=== PATIENT | female | born 1950 | race African-American/Black ===

== ENCOUNTER 2019-05-05 19:57 | Inpatient (IN) | payer MEDICARE ==
[~2019-05-05] VITALS: Ht 160 cm; Wt 101.2 kg
[2019-05-05 20:41] LABS: EOSINOPHILS % 1.4 % (0.0-5.0); HEMATOCRIT. 36.5 % (36.0-48.0); HEMOGLOBIN. 11.8 g/dL (12.0-16.0); MEAN CORPUSCULAR HEMOGLOBIN 25.9 pg (28.0-32.0); MEAN CORPUSCULAR VOLUME 79.8 fL (81.0-99.0); MEAN PLATELET VOLUME 8.7 fl (7.4-10.4); MONOCYTES % 8.4 % (2.0-8.0); NEUTROPHILS % 61.2 % (40.0-76.0); PLATELET 266 x1000/uL (130-400); RED BLOOD CELL COUNT 4.57 mill/uL (4.2-5.4); RED CELL DISTRIBUTION WIDTH 14.5 % (11.6-14.6)
[2019-05-05] MEDS ORDERED: NITROGLYCERIN 0.4MG TABLET SL SL PRN (20:45)
[2019-05-05] MEDS ORDERED: ASPIRIN 325MG TABLET PO ONE (20:45)
[2019-05-05 20:48] LABS: CHLORIDE 106 mEq/L (98-107)
[2019-05-05 20:49] LABS: PROTHROMBIN TIME 10.5 sec (9.6-11.0)
[2019-05-05] MEDS ORDERED: SODIUM CHLORIDE 0.9% 1,000 ML IV ONE (20:58)
[2019-05-05 22:55] VITALS: BP 174/83
[2019-05-06] MEDS ORDERED: ZOLPIDEM TARTRATE 5MG TABLET PO PRN
[2019-05-06] MEDS ORDERED: DEXTROSE 50% WATER 50ML SYRINGE IV PRN
[2019-05-06] MEDS ORDERED: ONDANSETRON HCL 4MG/2ML INJ IV PRN
[2019-05-06 00:24] VITALS: BP 179/83
[2019-05-06 01:01] LABS: BASOPHILS % 0.7 % (0.0-2.0); EOSINOPHILS % 1.8 % (0.0-5.0); HEMATOCRIT. 34.8 % (36.0-48.0); HEMOGLOBIN. 11.3 g/dL (12.0-16.0); MEAN CORPUSCULAR HEMOGLOBIN 25.8 pg (28.0-32.0); MEAN CORPUSCULAR VOLUME 79.6 fL (81.0-99.0); MEAN PLATELET VOLUME 8.8 fl (7.4-10.4); MONOCYTES % 9.7 % (2.0-8.0); NEUTROPHILS % 57.8 % (40.0-76.0); PLATELET 244 x1000/uL (130-400); RED BLOOD CELL COUNT 4.37 mill/uL (4.2-5.4); RED CELL DISTRIBUTION WIDTH 14.2 % (11.6-14.6)
[2019-05-06 01:06] LABS: CHLORIDE 108 mEq/L (98-107)
[2019-05-06] MEDS ORDERED: INSU100I28 SQ (01:11)
[2019-05-06] MEDS ORDERED: HYDR12.529 MT (01:11)
[2019-05-06] MEDS ORDERED: CARV10CP MT (01:11)
[2019-05-06] MEDS ORDERED: B12/1TAB MT (01:11)
[2019-05-06] MEDS: INSULIN GLARGINE UD 100 UNITS/ML SYR SUBCUT SCH ×3 (01:29→21:26)
[2019-05-06 04:00] VITALS: BP 175/84
[2019-05-06] MEDS: NITROGLYCERIN OINT 1GM/INCH UDPKT TD SCH ×3 (05:55→21:01)
[2019-05-06] MEDS: BLOOD SUGAR DIAGNOSTIC STRIP TEST SCH ×4 (06:15→21:26)
[2019-05-06] MEDS: INSULIN LISPRO 100 UNITS/ML SUBCUT SCH ×4 (06:31→21:00)
[2019-05-06 07:40] LABS: LDL CHOLESTEROL 192 mg/dL (5-100)
[2019-05-06 07:43] LABS: HDL CHOLESTEROL 47 mg/dL (40-59)
[2019-05-06 08:00] VITALS: BP 169/80
[2019-05-06] MEDS: AMLODIPINE 5MG TABLET PO SCH ×2 (09:51→20:55)
[2019-05-06] MEDS: ASPIRIN 325MG EC TABLET PO SCH (09:51)
[2019-05-06] MEDS: METOPROLOL TARTRATE 50MG TABLET PO SCH ×2 (09:52→20:54)
[2019-05-06] MEDS: ENOXAPARIN 40MG/0.4ML SYR SUBCUT SCH (09:54)
[2019-05-06] MEDS: MORPHINE SULFATE 2 MG/ML CPJ (NOT FOR IM USE) IV PRN (10:55)
[2019-05-06 11:25] LABS: CLARITY URINE CLEAR (CLEAR); COLOR URINE YELLOW (YELLOW); KETONES URINE NEGATIVE (NEGATIVE); LEUKOCYTE ESTERASE URINE NEGATIVE (NEGATIVE); NITRITE URINE NEGATIVE (NEGATIVE); OCCULT BLOOD URINE NEGATIVE (NEGATIVE); PROTEIN URINE NEGATIVE (NEGATIVE); SPECIFIC GRAVITY URINE 1.015 (1.005-1.030); UROBILINOGEN URINE 0.2 E.U./dL (0.2-1.0)
[2019-05-06] MEDS ORDERED: REGADENOSON 0.4 MG/5 ML IV SCH (13:15)
[2019-05-06 13:56] LABS: *AMPHETAMINES SCREEN URINE NEGATIVE (NEGATIVE); *BARBITURATES SCREEN URINE NEGATIVE (NEGATIVE); *BENZODIAZEPINES SCREEN URINE NEGATIVE (NEGATIVE); *COCAINE SCREEN URINE NEGATIVE (NEGATIVE); METHADONE URINE SCREEN NEGATIVE (NEGATIVE); OPIATES URINE SCREEN NEGATIVE (NEGATIVE)
[2019-05-06 13:57] LABS: CANNABINOID URINE SCREEN NEGATIVE (NEGATIVE); PHENCYCLIDINE URINE SCREEN NEGATIVE (NEGATIVE)
[2019-05-06] MEDS ORDERED: REGADENOSON 0.4 MG/5 ML IV ONE (14:00)
[2019-05-06 16:00] VITALS: BP 155/73
[2019-05-06 20:00] VITALS: BP 137/61
[2019-05-06] MEDS: ATORVASTATIN CALCIUM 40MG TABLET PO SCH (20:55)
[2019-05-06] MEDS ORDERED: HYDRALAZINE HCL 50MG TABLET PO SCH (21:00)
[2019-05-06] MEDS: HYDRALAZINE HCL 100MG TABLET PO SCH (21:01)
[2019-05-07] MEDS ORDERED: ACETAMINOPHEN 325MG TABLET PO PRN
[2019-05-07 00:06] VITALS: BP 111/72
[2019-05-07] MEDS: NITROGLYCERIN 0.4MG TABLET SL SL PRN ×4 (00:09→09:38)
[2019-05-07 04:15] VITALS: BP 170/85
[2019-05-07] MEDS: HYDROCODONE/ACETAMINOPHEN 5/325MG TABLET PO PRN ×3 (04:26→21:59)
[2019-05-07] MEDS: NITROGLYCERIN OINT 1GM/INCH UDPKT TD SCH ×3 (05:36→22:08)
[2019-05-07] MEDS: HYDRALAZINE HCL 100MG TABLET PO SCH ×3 (05:36→22:00)
[2019-05-07] MEDS: INSULIN LISPRO 100 UNITS/ML SUBCUT SCH ×4 (06:34→21:12)
[2019-05-07] MEDS: BLOOD SUGAR DIAGNOSTIC STRIP TEST SCH ×4 (06:34→21:09)
[2019-05-07 06:35] LABS: BASOPHILS % 0.3 % (0.0-2.0); EOSINOPHILS % 2.5 % (0.0-5.0); HEMATOCRIT. 34.6 % (36.0-48.0); HEMOGLOBIN. 11.3 g/dL (12.0-16.0); LYMPHOCYTES % 29.5 % (20.0-50.0); MEAN CORPUSCULAR HEMOGLOBIN 25.9 pg (28.0-32.0); MEAN CORPUSCULAR VOLUME 79.5 fL (81.0-99.0); MEAN PLATELET VOLUME 9.1 fl (7.4-10.4); MONOCYTES % 7.8 % (2.0-8.0); NEUTROPHILS % 59.9 % (40.0-76.0); PLATELET 241 x1000/uL (130-400); RED BLOOD CELL COUNT 4.35 mill/uL (4.2-5.4); RED CELL DISTRIBUTION WIDTH 14.2 % (11.6-14.6)
[2019-05-07 08:00] VITALS: BP 127/66
[2019-05-07] MEDS: METOPROLOL TARTRATE 50MG TABLET PO SCH ×2 (08:35→21:00)
[2019-05-07] MEDS: AMLODIPINE 5MG TABLET PO SCH ×2 (08:36→21:00)
[2019-05-07] MEDS: ENOXAPARIN 40MG/0.4ML SYR SUBCUT SCH (08:36)
[2019-05-07] MEDS: ASPIRIN 325MG EC TABLET PO SCH (09:52)
[2019-05-07] MEDS: MORPHINE SULFATE 2 MG/ML CPJ (NOT FOR IM USE) IV PRN (09:53)
[2019-05-07] MEDS: INSULIN GLARGINE UD 100 UNITS/ML SYR SUBCUT SCH ×2 (10:48→21:13)
[2019-05-07 12:00] VITALS: BP 137/71
[2019-05-07] MEDS ORDERED: POTASSIUM CHLORIDE INJ 40 MEQ in DEXT 5% WATER 250 ML IV NR (13:00)
[2019-05-07] MEDS ORDERED: HYDROMORPHONE HCL/PF 2MG/ML CPJ IM PRN (13:30)
[2019-05-07 16:00] VITALS: BP 183/78
[2019-05-07] MEDS: CLONIDINE 0.1MG TABLET PO SCH ×2 (17:08→23:00)
[2019-05-07] MEDS ORDERED: CLON0.1T MT (17:19)
[2019-05-07 20:00] VITALS: BP 105/53
[2019-05-07] MEDS: ATORVASTATIN CALCIUM 40MG TABLET PO SCH (21:13)
[2019-05-07] MEDS: HYDROMORPHONE HCL/PF 2MG/ML CPJ IV PRN (23:32)
[2019-05-08] VITALS: BP 130/69
[2019-05-08 04:00] VITALS: BP 128/69
[2019-05-08] MEDS: HYDROMORPHONE HCL/PF 2MG/ML CPJ IV PRN ×3 (05:41→21:51)
[2019-05-08] MEDS: CLONIDINE 0.1MG TABLET PO SCH (05:56)
[2019-05-08] MEDS: BLOOD SUGAR DIAGNOSTIC STRIP TEST SCH ×4 (05:57→21:00)
[2019-05-08] MEDS: HYDRALAZINE HCL 100MG TABLET PO SCH ×2 (05:57→14:00)
[2019-05-08] MEDS: NITROGLYCERIN OINT 1GM/INCH UDPKT TD SCH ×3 (05:57→21:51)
[2019-05-08] MEDS ORDERED: DEXT 5%/0.45% NACL 500ML 500 ML IV ONE (06:00)
[2019-05-08 07:20] LABS: BASOPHILS % 0.5 % (0.0-2.0); EOSINOPHILS % 0.4 % (0.0-5.0); HEMATOCRIT. 34.2 % (36.0-48.0); HEMOGLOBIN. 11.1 g/dL (12.0-16.0); LYMPHOCYTES % 19.3 % (20.0-50.0); MEAN CORPUSCULAR HEMOGLOBIN 26.1 pg (28.0-32.0); MEAN CORPUSCULAR VOLUME 80.2 fL (81.0-99.0); MEAN PLATELET VOLUME 9.1 fl (7.4-10.4); MONOCYTES % 6.5 % (2.0-8.0); NEUTROPHILS % 73.3 % (40.0-76.0); PLATELET 253 x1000/uL (130-400); RED BLOOD CELL COUNT 4.27 mill/uL (4.2-5.4)
[2019-05-08 08:00] VITALS: BP 134/63
[2019-05-08] MEDS: INSULIN LISPRO 100 UNITS/ML SUBCUT SCH ×7 (08:30→22:02)
[2019-05-08] MEDS ORDERED: SODIUM CHLORIDE 0.9% 1,000 ML IV SCH (08:30)
[2019-05-08] MEDS: METOPROLOL TARTRATE 50MG TABLET PO SCH ×2 (09:00→21:00)
[2019-05-08] MEDS: ASPIRIN 325MG EC TABLET PO SCH (09:00)
[2019-05-08] MEDS: AMLODIPINE 5MG TABLET PO SCH (09:00)
[2019-05-08] MEDS: INSULIN GLARGINE UD 100 UNITS/ML SYR SUBCUT SCH ×2 (09:59→22:13)
[2019-05-08 12:00] VITALS: BP 99/66
[2019-05-08 16:00] VITALS: BP 133/56
[2019-05-08] MEDS ORDERED: CLONIDINE 0.1MG TABLET PO SCH ×2 (18:00→21:00)
[2019-05-08 20:00] VITALS: BP 129/57
[2019-05-08] MEDS ORDERED: AMLODIPINE 2.5MG TABLET PO SCH (21:00)
[2019-05-08] MEDS: ATORVASTATIN CALCIUM 40MG TABLET PO SCH (21:52)
[2019-05-08] MEDS: HYDRALAZINE HCL 50MG TABLET PO SCH (22:00)
[2019-05-09] VITALS: BP 116/50
[2019-05-09 04:00] VITALS: BP 110/41
[2019-05-09] MEDS: HYDROMORPHONE HCL/PF 2MG/ML CPJ IV PRN (04:00)
[2019-05-09] MEDS: HYDRALAZINE HCL 50MG TABLET PO SCH (05:35)
[2019-05-09] MEDS: NITROGLYCERIN OINT 1GM/INCH UDPKT TD SCH ×2 (05:35→13:50)
[2019-05-09] MEDS: INSULIN LISPRO 100 UNITS/ML SUBCUT SCH ×4 (06:02→12:35)
[2019-05-09] MEDS: BLOOD SUGAR DIAGNOSTIC STRIP TEST SCH ×2 (06:02→12:34)
[2019-05-09 07:09] LABS: BASOPHILS % 0.5 % (0.0-2.0); EOSINOPHILS % 1.1 % (0.0-5.0); HEMATOCRIT. 35.8 % (36.0-48.0); HEMOGLOBIN. 11.6 g/dL (12.0-16.0); LYMPHOCYTES % 30.5 % (20.0-50.0); MEAN CORPUSCULAR VOLUME 80.4 fL (81.0-99.0); NEUTROPHILS % 59.9 % (40.0-76.0); PLATELET 247 x1000/uL (130-400); RED BLOOD CELL COUNT 4.45 mill/uL (4.2-5.4); RED CELL DISTRIBUTION WIDTH 14.3 % (11.6-14.6)
[2019-05-09 07:27] LABS: PHOSPHORUS 4.6 mg/dL (2.5-4.9)
[2019-05-09 08:00] VITALS: BP 162/80
[2019-05-09] MEDS ORDERED: CARVEDILOL 3.125 MG TABLET PO SCH (09:00)
[2019-05-09] MEDS: ASPIRIN 325MG EC TABLET PO SCH (09:22)
[2019-05-09] MEDS: INSULIN GLARGINE UD 100 UNITS/ML SYR SUBCUT SCH (09:23)
[2019-05-09 12:00] VITALS: BP 142/70
[2019-05-09] MEDS ORDERED: AMLODIPINE 2.5MG TABLET PO SCH (12:45)
[2019-05-09 14:27] VITALS: BP 142/70
== END 2019-05-09 15:20 | disposition home or self-care (01) | DRG 682 ==
LOC: ER 19:57 → 8WST 21:07 → EDBEDREQTM 21:14 → EDBEDREQ 21:14 → ENRESERV 21:27
PROVIDERS: ADMIT Internal Medicine; ATTEND Internal Medicine
DX: I12.9 Hypertensive chronic kidney disease with stage 1 through stage 4 chronic kidney disease, or unspecified chronic kidney disease (principal); N17.0 Acute kidney failure with tubular necrosis; E85.9 Amyloidosis, unspecified; E87.1 Hypo-osmolality and hyponatremia; I25.10 Atherosclerotic heart disease of native coronary artery without angina pectoris; R07.89 Other chest pain; D25.9 Leiomyoma of uterus, unspecified; E11.22 Type 2 diabetes mellitus with diabetic chronic kidney disease; G56.00 Carpal tunnel syndrome, unspecified upper limb; E11.40 Type 2 diabetes mellitus with diabetic neuropathy, unspecified; J30.9 Allergic rhinitis, unspecified; M71.50 Other bursitis, not elsewhere classified, unspecified site; E66.9 Obesity, unspecified; E78.00 Pure hypercholesterolemia, unspecified; E87.6 Hypokalemia; F41.8 Other specified anxiety disorders; G47.33 Obstructive sleep apnea (adult) (pediatric); G89.29 Other chronic pain; H40.9 Unspecified glaucoma; I83.90 Asymptomatic varicose veins of unspecified lower extremity; E78.5 Hyperlipidemia, unspecified; K59.00 Constipation, unspecified; K64.9 Unspecified hemorrhoids; M19.90 Unspecified osteoarthritis, unspecified site; N18.3 Chronic kidney disease, stage 3 (moderate); N89.8 Other specified noninflammatory disorders of vagina; Z79.4 Long term (current) use of insulin; Z79.82 Long term (current) use of aspirin; Z83.3 Family history of diabetes mellitus; Z83.71 Family history of colonic polyps; Z91.018 Allergy to other foods; Z68.39 Body mass index [BMI] 39.0-39.9, adult; I25.2 Old myocardial infarction; Z71.3 Dietary counseling and surveillance
CPT/HCPCS: 36415; 71045; 76770; 78452; 80048; 80061; 80305; 81003; 82962; 83036; 83735; 83880; 84100; 84443; 84484; 93005; 93017; 93306; 99285; A9500; J1170; J1650; J1815; J2270; J2405; J2785; J3480; J7030; J7060

== ENCOUNTER 2021-05-11 13:08 | Inpatient (IN) | payer MEDICARE ==
[~2021-05-11] VITALS: Ht 160 cm; Wt 111.1 kg
[~2021-05-11 13:08] MED LIST: B12/1TAB MT; CARV10CP MT; CLON0.1T MT; INSU100I28 SQ
[2021-05-11] MEDS ORDERED: SODIUM CHLORIDE 0.9% 1,000 ML IV ONE (20:45)
[2021-05-11] MEDS ORDERED: ONDANSETRON HCL 4MG/2ML INJ IV ONE (20:45)
[2021-05-11] MEDS ORDERED: ACETAMINOPHEN 325MG TABLET PO ONE (20:45)
[2021-05-11 21:09] LABS: BASOPHILS % 0.9 % (0.0-2.0); EOSINOPHILS % 1.8 % (0.0-5.0); HEMATOCRIT. 32.4 % (36.0-48.0); HEMOGLOBIN. 10.5 g/dL (12.0-16.0); LYMPHOCYTES % 23.5 % (20.0-50.0); MEAN CORPUSCULAR HEMOGLOBIN 26.2 pg (28.0-32.0); MEAN CORPUSCULAR VOLUME 81.2 fL (81.0-99.0); MEAN PLATELET VOLUME 8.5 fl (7.4-10.4); MONOCYTES % 10.1 % (2.0-8.0); NEUTROPHILS % 63.7 % (40.0-76.0); PLATELET 274 x1000/uL (130-400); RED BLOOD CELL COUNT 3.98 mill/uL (4.2-5.4); RED CELL DISTRIBUTION WIDTH 15.2 % (11.6-14.6)
[2021-05-11 21:16] LABS: CHLORIDE 113 mEq/L (98-107)
[2021-05-11 21:27] LABS: B-HCG QUANTITATIVE < 1 mIU/mL (<3)
[2021-05-11] MEDS ORDERED: FUROSEMIDE 40MG/4ML VIAL IVP ONE (22:45)
[2021-05-12] MEDS ORDERED: FURO20TA4 MT (02:52)
[2021-05-12] MEDS ORDERED: MINO10TA PO (02:52)
[2021-05-12] MEDS ORDERED: AZIL80TA MT (02:52)
[2021-05-12] MEDS ORDERED: LABE100T5 MT (02:52)
[2021-05-12] MEDS ORDERED: ALBU6.7H9 INH (02:57)
[2021-05-12] MEDS ORDERED: DEXTROSE 50% WATER 50ML SYRINGE IV PRN (03:00)
[2021-05-12 03:52] VITALS: BP 182/80
[2021-05-12 04:00] VITALS: BP 132/49
[2021-05-12] MEDS: CLONIDINE 0.1MG TABLET PO PRN ×3 (04:16→12:19)
[2021-05-12] MEDS ORDERED: FUROSEMIDE 40MG/4ML VIAL IVP SCH (06:00)
[2021-05-12] MEDS: INSULIN LISPRO 100 UNITS/ML SUBCUT SCH ×4 (06:11→21:04)
[2021-05-12] MEDS: BLOOD SUGAR DIAGNOSTIC STRIP TEST SCH ×4 (06:18→21:00)
[2021-05-12 06:28] LABS: BASOPHILS % 0.6 % (0.0-2.0); EOSINOPHILS % 1.4 % (0.0-5.0); HEMATOCRIT. 31.7 % (36.0-48.0); HEMOGLOBIN. 10.1 g/dL (12.0-16.0); LYMPHOCYTES % 16.3 % (20.0-50.0); MEAN CORPUSCULAR HEMOGLOBIN 25.9 pg (28.0-32.0); MEAN CORPUSCULAR VOLUME 81.6 fL (81.0-99.0); MEAN PLATELET VOLUME 8.4 fl (7.4-10.4); NEUTROPHILS % 73.7 % (40.0-76.0); PLATELET 288 x1000/uL (130-400); RED BLOOD CELL COUNT 3.88 mill/uL (4.2-5.4); RED CELL DISTRIBUTION WIDTH 15.3 % (11.6-14.6)
[2021-05-12 08:00] VITALS: BP 174/82
[2021-05-12] MEDS: ASPIRIN 81MG EC TABLET PO SCH (08:31)
[2021-05-12] MEDS ORDERED: CARVEDILOL 3.125 MG TABLET PO SCH (09:00)
[2021-05-12] MEDS ORDERED: LISINOPRIL 5MG TABLET PO SCH (09:00)
[2021-05-12] MEDS ORDERED: FUROSEMIDE 40MG TABLET PO SCH (09:00)
[2021-05-12 12:00] VITALS: BP 190/65
[2021-05-12] MEDS ORDERED: HYDRALAZINE HCL 100MG TABLET PO NR (14:00)
[2021-05-12] MEDS ORDERED: NALOXONE HCL 0.4MG/ML VIAL IV PRN (14:00)
[2021-05-12] MEDS: MINOXIDIL 10MG TABLET PO SCH (15:00)
[2021-05-12 16:00] VITALS: BP 162/81
[2021-05-12] MEDS: ISOSORBIDE MONONITRATE 30MG TABLET SR 24HR PO SCH (17:28)
[2021-05-12] MEDS: FUROSEMIDE 40MG/4ML VIAL IVP SCH (17:29)
[2021-05-12 20:00] VITALS: BP 115/57
[2021-05-12] MEDS: HYDRALAZINE HCL 100MG TABLET PO SCH (21:18)
[2021-05-12] MEDS: ATORVASTATIN CALCIUM 40MG TABLET PO SCH (21:18)
[2021-05-12] MEDS: LABETALOL HCL 100MG TABLET PO SCH (21:19)
[2021-05-13] VITALS: BP 102/43
[2021-05-13 04:00] VITALS: BP 136/41
[2021-05-13] MEDS: INSULIN LISPRO 100 UNITS/ML SUBCUT SCH ×4 (06:25→21:45)
[2021-05-13] MEDS: BLOOD SUGAR DIAGNOSTIC STRIP TEST SCH ×4 (06:25→21:37)
[2021-05-13] MEDS: FUROSEMIDE 40MG/4ML VIAL IVP SCH ×2 (06:25→17:07)
[2021-05-13 08:00] VITALS: BP 140/55
[2021-05-13] MEDS: LABETALOL HCL 100MG TABLET PO SCH ×2 (08:43→21:39)
[2021-05-13] MEDS: ASPIRIN 81MG EC TABLET PO SCH (08:43)
[2021-05-13] MEDS: ISOSORBIDE MONONITRATE 30MG TABLET SR 24HR PO SCH (08:44)
[2021-05-13] MEDS: MINOXIDIL 10MG TABLET PO SCH (08:44)
[2021-05-13] MEDS: HYDRALAZINE HCL 100MG TABLET PO SCH ×2 (08:44→21:38)
[2021-05-13] MEDS ORDERED: LISINOPRIL 40MG TABLET PO SCH (09:00)
[2021-05-13] MEDS: HYDROCODONE/ACETAMINOPHEN 5/325MG TABLET PO PRN ×2 (10:16→16:15)
[2021-05-13 12:00] VITALS: BP 111/48
[2021-05-13 16:00] VITALS: BP 122/54
[2021-05-13 20:00] VITALS: BP 113/53
[2021-05-13] MEDS: ATORVASTATIN CALCIUM 40MG TABLET PO SCH (21:38)
[2021-05-13] MEDS: INSULIN GLARGINE UD 100 UNITS/ML SYR SUBCUT SCH (21:53)
[2021-05-14] VITALS: BP 101/43
[2021-05-14 04:00] VITALS: BP 94/32
[2021-05-14] MEDS: FUROSEMIDE 40MG/4ML VIAL IVP SCH (06:26)
[2021-05-14] MEDS: BLOOD SUGAR DIAGNOSTIC STRIP TEST SCH ×4 (06:26→21:00)
[2021-05-14] MEDS: INSULIN LISPRO 100 UNITS/ML SUBCUT SCH ×4 (06:35→21:26)
[2021-05-14 08:00] VITALS: BP 108/49
[2021-05-14] MEDS: LABETALOL HCL 100MG TABLET PO SCH ×2 (09:00→21:22)
[2021-05-14] MEDS: HYDRALAZINE HCL 100MG TABLET PO SCH (09:00)
[2021-05-14] MEDS: ISOSORBIDE MONONITRATE 30MG TABLET SR 24HR PO SCH (09:00)
[2021-05-14] MEDS: MINOXIDIL 10MG TABLET PO SCH (09:00)
[2021-05-14] MEDS: ASPIRIN 81MG EC TABLET PO SCH (09:28)
[2021-05-14] MEDS: INSULIN GLARGINE UD 100 UNITS/ML SYR SUBCUT SCH ×2 (09:37→21:27)
[2021-05-14 12:00] VITALS: BP 121/48
[2021-05-14 16:00] VITALS: BP 122/71
[2021-05-14 16:02] LABS: BG BASE EXCESS -1.5 mmol/L (-2.0-2.0); BG CARBOXYHEMOGLOBIN 0.3 % (0.5-1.5); BG DEOXYHEMOGLOBIN 2.4 % (0.0-5.0); BG FRACTION INSPIRED OXYGEN 28; BG HCO3 ACT 23.6 mmol/L (22.0-26.0); BG METHEMOGLOBIN 0.3 % (0.0-1.5); BG OXYGEN SATURATION 97.6 % (92.0-98.5); BG PCO2 41.6 mmHg (35.0-45.0); BG PH 7.372 (7.350-7.450); BG PO2 106.5 mmHg (75.0-100.0); BG SAMPLE SITE RIGHT RADIAL; BG TOTAL HEMOGLOBIN 9.6 g/dL (12.0-18.0); BG VENT MODE NASAL CANNULA
[2021-05-14 19:57] LABS: CLARITY URINE CLOUDY (CLEAR); COLOR URINE YELLOW (YELLOW); KETONES URINE TRACE (NEGATIVE); LEUKOCYTE ESTERASE URINE 1+ (NEGATIVE); NITRITE URINE NEGATIVE (NEGATIVE); OCCULT BLOOD URINE 2+ (NEGATIVE); PROTEIN URINE 1+ (NEGATIVE); SPECIFIC GRAVITY URINE 1.015 (1.005-1.030); UROBILINOGEN URINE 0.2 E.U./dL (0.2-1.0)
[2021-05-14 20:00] VITALS: BP 119/70
[2021-05-14] MEDS: ATORVASTATIN CALCIUM 40MG TABLET PO SCH (21:22)
[2021-05-15] VITALS (7 sets, daily range): BP systolic 137–162; BP diastolic 50–73
[2021-05-15 05:46] LABS: BASOPHILS % 0.5 % (0.0-2.0); HEMATOCRIT. 28.5 % (36.0-48.0); HEMOGLOBIN. 8.9 g/dL (12.0-16.0); LYMPHOCYTES % 15.6 % (20.0-50.0); MEAN CORPUSCULAR HEMOGLOBIN 25.5 pg (28.0-32.0); MEAN PLATELET VOLUME 8.8 fl (7.4-10.4); MONOCYTES % 10.1 % (2.0-8.0); NEUTROPHILS % 72.8 % (40.0-76.0); PLATELET 259 x1000/uL (130-400); RED BLOOD CELL COUNT 3.51 mill/uL (4.2-5.4); RED CELL DISTRIBUTION WIDTH 15.5 % (11.6-14.6)
[2021-05-15 06:02] LABS: PHOSPHORUS 5.7 mg/dL (2.5-4.9)
[2021-05-15] MEDS: BLOOD SUGAR DIAGNOSTIC STRIP TEST SCH ×4 (06:40→21:17)
[2021-05-15] MEDS: INSULIN LISPRO 100 UNITS/ML SUBCUT SCH ×4 (07:09→21:17)
[2021-05-15] MEDS ORDERED: MINOXIDIL 2.5MG TABLET PO SCH (09:00)
[2021-05-15] MEDS: ISOSORBIDE MONONITRATE 30MG TABLET SR 24HR PO SCH (09:26)
[2021-05-15] MEDS: LABETALOL HCL 100MG TABLET PO SCH ×2 (09:26→21:18)
[2021-05-15] MEDS: ASPIRIN 81MG EC TABLET PO SCH (09:27)
[2021-05-15] MEDS: HYDROCODONE/ACETAMINOPHEN 5/325MG TABLET PO PRN (09:27)
[2021-05-15] MEDS: INSULIN GLARGINE UD 100 UNITS/ML SYR SUBCUT SCH (10:57)
[2021-05-15] MEDS ORDERED: NALOXONE HCL 0.4MG/ML VIAL IV PRN (18:45)
[2021-05-15] MEDS: ATORVASTATIN CALCIUM 40MG TABLET PO SCH (21:17)
[2021-05-15] MEDS ORDERED: ASPI-1497 PO (23:41)
[2021-05-15] MEDS ORDERED: CA C1TAB95 PO (23:41)
[2021-05-16] MEDS ORDERED: INSLIS SUBCUT (00:05)
[2021-05-16] MEDS ORDERED: INSU100I28 SQ (00:07)
[2021-05-16] MEDS ORDERED: ISOSORBIDE MONONITRATE 60MG TABLET SR 24HR PO SCH (09:00)
== END 2021-05-15 21:45 | DRG 291 ==
LOC: ER 13:08 → 7EST 23:15 → EDBEDREQTM 23:36 → EDBEDREQ 23:36 → ENRESERV 05-12 00:16 → ER 05-12 01:51
PROVIDERS: ADMIT Internal Medicine; ATTEND Internal Medicine
PROC: 5A09357 Assistance with Respiratory Ventilation, Less than 24 Consecutive Hours, Continuous Positive Airway Pressure (ICD-10-PCS; principal; 2021-05-14)
DX: I13.0 Hypertensive heart and chronic kidney disease with heart failure and stage 1 through stage 4 chronic kidney disease, or unspecified chronic kidney disease (principal); J96.01 Acute respiratory failure with hypoxia; I50.33 Acute on chronic diastolic (congestive) heart failure; E44.1 Mild protein-calorie malnutrition; N17.9 Acute kidney failure, unspecified; N18.4 Chronic kidney disease, stage 4 (severe); Z68.41 Body mass index [BMI] 40.0-44.9, adult; D64.9 Anemia, unspecified; E78.5 Hyperlipidemia, unspecified; E87.8 Other disorders of electrolyte and fluid balance, not elsewhere classified; E11.22 Type 2 diabetes mellitus with diabetic chronic kidney disease; I16.0 Hypertensive urgency; E11.40 Type 2 diabetes mellitus with diabetic neuropathy, unspecified; E66.01 Morbid (severe) obesity due to excess calories; E78.00 Pure hypercholesterolemia, unspecified; G89.29 Other chronic pain; M48.02 Spinal stenosis, cervical region; Z20.822 Contact with and (suspected) exposure to COVID-19; G56.03 Carpal tunnel syndrome, bilateral upper limbs; R26.9 Unspecified abnormalities of gait and mobility; R53.81 Other malaise; I25.2 Old myocardial infarction; Z82.49 Family history of ischemic heart disease and other diseases of the circulatory system; Z83.3 Family history of diabetes mellitus; Z91.018 Allergy to other foods; Z91.048 Other nonmedicinal substance allergy status
CPT/HCPCS: 36415; 36600; 71045; 71250; 72141; 72148; 76770; 80048; 80053; 80061; 81003; 82375; 82805; 82962; 83036; 83735; 83880; 84100; 84484; 84702; 85025; 86850; 86900; 87426; 93005; 93306; 97162; 99285; J1815; J1940; J7030

== ENCOUNTER 2021-05-15 21:38 | Inpatient (IN) | payer MEDICARE ==
[~2021-05-15] VITALS: Ht 160 cm; Wt 111.1 kg
[~2021-05-15 21:38] MED LIST changes: +ALBU6.7H9 INH; +AZIL80TA MT; +FURO20TA4 MT; +LABE100T5 MT; +MINO10TA PO
[2021-05-15 21:45] VITALS: BP 145/63
[2021-05-15] MEDS ORDERED: NALOXONE HCL 0.4 MG/ML 1ML VIAL IV PRN (22:30)
[2021-05-15] MEDS ORDERED: DEXTROSE 50% WATER 50ML SYRINGE IV PRN (22:30)
[2021-05-15] MEDS ORDERED: INSULIN GLARGINE UD 100 UNITS/ML SYR SUBCUT SCH (23:00)
[2021-05-15] MEDS ORDERED: INSULIN GLARGINE UD 100 UNITS/ML SYR SUBCUT NR (23:30)
[2021-05-15] MEDS ORDERED: CA C1TAB95 PO (23:41)
[2021-05-15] MEDS ORDERED: ASPI-1497 PO (23:41)
[2021-05-16] MEDS ORDERED: INSLIS SUBCUT (00:05)
[2021-05-16] MEDS ORDERED: INSU100I28 SQ (00:07)
[2021-05-16] MEDS ORDERED: *PATIENT'S OWN MEDICATION STORAGE XX SCH (00:15)
[2021-05-16] MEDS: INSULIN LISPRO 100 UNITS/ML SUBCUT SCH ×4 (05:54→21:10)
[2021-05-16] MEDS: BLOOD SUGAR DIAGNOSTIC STRIP TEST SCH ×4 (05:54→21:00)
[2021-05-16 06:38] LABS: CHLORIDE 113 mEq/L (98-107)
[2021-05-16 06:46] LABS: PHOSPHORUS 4.9 mg/dL (2.5-4.9)
[2021-05-16 06:54] LABS: BASOPHILS % 0.8 % (0.0-2.0); EOSINOPHILS % 1.6 % (0.0-5.0); HEMATOCRIT. 26.8 % (36.0-48.0); HEMOGLOBIN. 8.7 g/dL (12.0-16.0); LYMPHOCYTES % 19.2 % (20.0-50.0); MEAN CORPUSCULAR HEMOGLOBIN 26.1 pg (28.0-32.0); MEAN CORPUSCULAR VOLUME 80.7 fL (81.0-99.0); MEAN PLATELET VOLUME 8.9 fl (7.4-10.4); MONOCYTES % 12.2 % (2.0-8.0); NEUTROPHILS % 66.2 % (40.0-76.0); PLATELET 232 x1000/uL (130-400); RED BLOOD CELL COUNT 3.32 mill/uL (4.2-5.4); RED CELL DISTRIBUTION WIDTH 14.8 % (11.6-14.6)
[2021-05-16 07:32] VITALS: BP 130/48
[2021-05-16] MEDS: MINOXIDIL 2.5MG TABLET PO SCH (09:00)
[2021-05-16] MEDS: ASPIRIN 81MG EC TABLET PO SCH (11:58)
[2021-05-16] MEDS: ISOSORBIDE MONONITRATE 60MG TABLET SR 24HR PO SCH (12:00)
[2021-05-16] MEDS: LABETALOL HCL 100MG TABLET PO SCH ×2 (12:01→20:48)
[2021-05-16] MEDS: INSULIN GLARGINE UD 100 UNITS/ML SYR SUBCUT SCH ×2 (12:04→21:11)
[2021-05-16] MEDS: HYDROCODONE/ACETAMINOPHEN 5/325MG TABLET PO PRN (12:08)
[2021-05-16 14:51] LABS: TOTAL IRON BINDING CAPACITY 261 ug/dL (250-450)
[2021-05-16 20:00] VITALS: BP 127/57
[2021-05-16] MEDS ORDERED: ATORVASTATIN CALCIUM 40MG TABLET PO SCH (21:00)
[2021-05-17] MEDS: BLOOD SUGAR DIAGNOSTIC STRIP TEST SCH ×5 (05:40→21:38)
[2021-05-17 07:23] LABS: BASOPHILS % 0.2 % (0.0-2.0); EOSINOPHILS % 1.5 % (0.0-5.0); HEMATOCRIT. 26.5 % (36.0-48.0); HEMOGLOBIN. 8.6 g/dL (12.0-16.0); LYMPHOCYTES % 17.6 % (20.0-50.0); MEAN CORPUSCULAR HEMOGLOBIN 26.1 pg (28.0-32.0); MEAN CORPUSCULAR VOLUME 80.7 fL (81.0-99.0); MEAN PLATELET VOLUME 9.2 fl (7.4-10.4); MONOCYTES % 11.4 % (2.0-8.0); NEUTROPHILS % 69.3 % (40.0-76.0); PLATELET 227 x1000/uL (130-400); RED BLOOD CELL COUNT 3.28 mill/uL (4.2-5.4); RED CELL DISTRIBUTION WIDTH 14.7 % (11.6-14.6)
[2021-05-17 07:42] LABS: PHOSPHORUS 4.6 mg/dL (2.5-4.9)
[2021-05-17 07:49] LABS: FOLIC ACID (FOLATE) SERUM >20 ng/mL ng/mL (>5.38)
[2021-05-17 07:53] LABS: FERRITIN 88 ng/mL (10-291)
[2021-05-17 08:01] LABS: VITAMIN B12 SERUM 385 pg/mL (211-911)
[2021-05-17 08:03] VITALS: BP 160/71
[2021-05-17] MEDS ORDERED: LACTULOSE 20G/30ML UDC PO PRN (08:45)
[2021-05-17] MEDS: INSULIN LISPRO 100 UNITS/ML SUBCUT SCH ×4 (09:00→21:00)
[2021-05-17] MEDS ORDERED: DOCUSATE SODIUM 100MG CAPSULE PO SCH (09:00)
[2021-05-17] MEDS ORDERED: POLYETHYLENE GLYCOL 3350 (17GM) 1 DOSE PACK PO SCH (09:00)
[2021-05-17] MEDS: LABETALOL HCL 100MG TABLET PO SCH ×2 (09:49→21:38)
[2021-05-17] MEDS: MINOXIDIL 2.5MG TABLET PO SCH (09:50)
[2021-05-17] MEDS: ISOSORBIDE MONONITRATE 60MG TABLET SR 24HR PO SCH (09:50)
[2021-05-17] MEDS: ASPIRIN 81MG EC TABLET PO SCH (09:50)
[2021-05-17] MEDS: LACTULOSE 20G/30ML UDC PO SCH ×2 (09:55→13:00)
[2021-05-17] MEDS ORDERED: FUROSEMIDE 20MG TABLET PO SCH (10:00)
[2021-05-17] MEDS: INSULIN GLARGINE UD 100 UNITS/ML SYR SUBCUT SCH ×2 (10:55→21:46)
[2021-05-17] MEDS: FERROUS SULFATE 325MG TABLET PO SCH (16:57)
[2021-05-17] MEDS: CYANOCOBALAMIN 1000MCG/ML VIAL IM SCH (16:57)
[2021-05-17 20:00] VITALS: BP 118/76
[2021-05-18] MEDS: BLOOD SUGAR DIAGNOSTIC STRIP TEST SCH ×4 (06:30→21:46)
[2021-05-18 07:40] LABS: BASOPHILS % 0.4 % (0.0-2.0); EOSINOPHILS % 1.6 % (0.0-5.0); HEMATOCRIT. 27.6 % (36.0-48.0); HEMOGLOBIN. 8.9 g/dL (12.0-16.0); LYMPHOCYTES % 16.9 % (20.0-50.0); MEAN CORPUSCULAR VOLUME 80.6 fL (81.0-99.0); MEAN PLATELET VOLUME 9.2 fl (7.4-10.4); NEUTROPHILS % 70.1 % (40.0-76.0); PLATELET 232 x1000/uL (130-400); RED BLOOD CELL COUNT 3.43 mill/uL (4.2-5.4); RED CELL DISTRIBUTION WIDTH 14.5 % (11.6-14.6)
[2021-05-18 07:55] VITALS: BP 155/68
[2021-05-18] MEDS: INSULIN LISPRO 100 UNITS/ML SUBCUT SCH ×4 (09:00→22:13)
[2021-05-18] MEDS: CYANOCOBALAMIN 1000MCG/ML VIAL IM SCH (09:00)
[2021-05-18] MEDS: ASPIRIN 81MG EC TABLET PO SCH (10:38)
[2021-05-18] MEDS: LABETALOL HCL 100MG TABLET PO SCH ×2 (10:38→21:49)
[2021-05-18] MEDS: FERROUS SULFATE 325MG TABLET PO SCH ×3 (10:38→18:22)
[2021-05-18] MEDS: MINOXIDIL 2.5MG TABLET PO SCH (10:39)
[2021-05-18] MEDS: ASCORBIC ACID 500 MG TABLET PO SCH (10:39)
[2021-05-18] MEDS: ISOSORBIDE MONONITRATE 60MG TABLET SR 24HR PO SCH (10:39)
[2021-05-18] MEDS: INSULIN GLARGINE UD 100 UNITS/ML SYR SUBCUT SCH ×2 (10:49→22:14)
[2021-05-18 20:00] VITALS: BP 154/67
[2021-05-19] MEDS: BLOOD SUGAR DIAGNOSTIC STRIP TEST SCH ×4 (06:50→21:43)
[2021-05-19 06:51] LABS: BASOPHILS % 0.5 % (0.0-2.0); EOSINOPHILS % 1.4 % (0.0-5.0); HEMATOCRIT. 27.8 % (36.0-48.0); HEMOGLOBIN. 8.8 g/dL (12.0-16.0); MEAN CORPUSCULAR HEMOGLOBIN 25.7 pg (28.0-32.0); MEAN CORPUSCULAR VOLUME 81.4 fL (81.0-99.0); MEAN PLATELET VOLUME 9.5 fl (7.4-10.4); MONOCYTES % 10.3 % (2.0-8.0); NEUTROPHILS % 70.8 % (40.0-76.0); PLATELET 214 x1000/uL (130-400); RED BLOOD CELL COUNT 3.41 mill/uL (4.2-5.4)
[2021-05-19 07:05] LABS: PHOSPHORUS 3.5 mg/dL (2.5-4.9)
[2021-05-19 08:01] VITALS: BP 166/87
[2021-05-19] MEDS: CYANOCOBALAMIN 1000MCG/ML VIAL IM SCH (08:24)
[2021-05-19] MEDS: ASPIRIN 81MG EC TABLET PO SCH (08:24)
[2021-05-19] MEDS: FERROUS SULFATE 325MG TABLET PO SCH ×3 (08:24→16:43)
[2021-05-19] MEDS: MINOXIDIL 2.5MG TABLET PO SCH (08:24)
[2021-05-19] MEDS: ASCORBIC ACID 500 MG TABLET PO SCH (08:25)
[2021-05-19] MEDS: ISOSORBIDE MONONITRATE 60MG TABLET SR 24HR PO SCH (08:25)
[2021-05-19] MEDS: FUROSEMIDE 40MG TABLET PO SCH (08:25)
[2021-05-19] MEDS: LABETALOL HCL 100MG TABLET PO SCH ×2 (08:25→21:24)
[2021-05-19] MEDS: INSULIN LISPRO 100 UNITS/ML SUBCUT SCH ×4 (08:26→21:30)
[2021-05-19] MEDS: CLONIDINE 0.1MG TABLET PO PRN (08:29)
[2021-05-19] MEDS: AMLODIPINE 5MG TABLET PO SCH ×2 (09:15→21:25)
[2021-05-19 09:55] VITALS: BP 107/49
[2021-05-19] MEDS: INSULIN GLARGINE UD 100 UNITS/ML SYR SUBCUT SCH ×2 (09:57→22:30)
[2021-05-19 20:00] VITALS: BP 108/42
[2021-05-20 07:06] LABS: BASOPHILS % 0.4 % (0.0-2.0); HEMATOCRIT. 27.4 % (36.0-48.0); LYMPHOCYTES % 19.7 % (20.0-50.0); MEAN CORPUSCULAR HEMOGLOBIN 26.1 pg (28.0-32.0); MEAN CORPUSCULAR VOLUME 79.7 fL (81.0-99.0); MEAN PLATELET VOLUME 9.3 fl (7.4-10.4); MONOCYTES % 9.7 % (2.0-8.0); NEUTROPHILS % 68.2 % (40.0-76.0); PLATELET 235 x1000/uL (130-400); RED BLOOD CELL COUNT 3.43 mill/uL (4.2-5.4); RED CELL DISTRIBUTION WIDTH 14.8 % (11.6-14.6)
[2021-05-20 07:21] LABS: PHOSPHORUS 3.2 mg/dL (2.5-4.9)
[2021-05-20] MEDS: HYDROCODONE/ACETAMINOPHEN 5/325MG TABLET PO PRN (07:56)
[2021-05-20 08:12] VITALS: BP 153/67
[2021-05-20] MEDS: INSULIN LISPRO 100 UNITS/ML SUBCUT SCH ×4 (09:00→21:36)
[2021-05-20] MEDS: CYANOCOBALAMIN 1000MCG/ML VIAL IM SCH (09:00)
[2021-05-20] MEDS: ISOSORBIDE MONONITRATE 60MG TABLET SR 24HR PO SCH (09:51)
[2021-05-20] MEDS: FERROUS SULFATE 325MG TABLET PO SCH ×3 (09:51→17:53)
[2021-05-20] MEDS: AMLODIPINE 5MG TABLET PO SCH ×2 (09:51→21:33)
[2021-05-20] MEDS: ASPIRIN 81MG EC TABLET PO SCH (09:51)
[2021-05-20] MEDS: MINOXIDIL 2.5MG TABLET PO SCH (09:51)
[2021-05-20] MEDS: LABETALOL HCL 100MG TABLET PO SCH ×2 (09:51→21:33)
[2021-05-20] MEDS: ASCORBIC ACID 500 MG TABLET PO SCH (09:51)
[2021-05-20] MEDS: FUROSEMIDE 40MG TABLET PO SCH ×2 (09:52→17:53)
[2021-05-20] MEDS: INSULIN GLARGINE UD 100 UNITS/ML SYR SUBCUT SCH ×2 (10:05→21:36)
[2021-05-20] MEDS: BLOOD SUGAR DIAGNOSTIC STRIP TEST SCH ×3 (11:15→21:34)
[2021-05-20 20:00] VITALS: BP 166/69
[2021-05-21] MEDS: FUROSEMIDE 40MG TABLET PO SCH ×2 (06:11→17:11)
[2021-05-21] MEDS: BLOOD SUGAR DIAGNOSTIC STRIP TEST SCH ×4 (06:12→20:24)
[2021-05-21] MEDS: INSULIN LISPRO 100 UNITS/ML SUBCUT SCH ×4 (06:14→20:51)
[2021-05-21 07:50] LABS: BASOPHILS % 0.7 % (0.0-2.0); EOSINOPHILS % 2.2 % (0.0-5.0); HEMATOCRIT. 27.8 % (36.0-48.0); HEMOGLOBIN. 8.9 g/dL (12.0-16.0); LYMPHOCYTES % 22.1 % (20.0-50.0); MEAN CORPUSCULAR HEMOGLOBIN 25.9 pg (28.0-32.0); MEAN CORPUSCULAR VOLUME 80.6 fL (81.0-99.0); MEAN PLATELET VOLUME 9.1 fl (7.4-10.4); MONOCYTES % 10.9 % (2.0-8.0); NEUTROPHILS % 64.1 % (40.0-76.0); PLATELET 227 x1000/uL (130-400); RED BLOOD CELL COUNT 3.44 mill/uL (4.2-5.4); RED CELL DISTRIBUTION WIDTH 14.6 % (11.6-14.6)
[2021-05-21 08:00] VITALS: BP 173/86
[2021-05-21 08:20] LABS: PHOSPHORUS 3.9 mg/dL (2.5-4.9)
[2021-05-21] MEDS: ASCORBIC ACID 500 MG TABLET PO SCH (09:21)
[2021-05-21] MEDS: AMLODIPINE 5MG TABLET PO SCH ×2 (09:21→20:24)
[2021-05-21] MEDS: FERROUS SULFATE 325MG TABLET PO SCH ×3 (09:22→17:11)
[2021-05-21] MEDS: ASPIRIN 81MG EC TABLET PO SCH (09:22)
[2021-05-21] MEDS: LABETALOL HCL 100MG TABLET PO SCH ×2 (09:22→20:24)
[2021-05-21] MEDS: MINOXIDIL 2.5MG TABLET PO SCH ×2 (09:22→20:23)
[2021-05-21] MEDS: CLONIDINE 0.1MG TABLET PO PRN (09:23)
[2021-05-21] MEDS: ISOSORBIDE MONONITRATE 60MG TABLET SR 24HR PO SCH (09:28)
[2021-05-21] MEDS: CYANOCOBALAMIN 1000MCG/ML VIAL IM SCH (09:28)
[2021-05-21] MEDS: INSULIN GLARGINE UD 100 UNITS/ML SYR SUBCUT SCH ×2 (10:55→20:51)
[2021-05-21 14:10] LABS: 25-HYDROXY VITAMIN D3 26 ng/mL (.)
[2021-05-21] MEDS ORDERED: IPRATROPIUM/ALBUTEROL 0.5-3(2.5)MG/3ML NEB HHN PRN (15:30)
[2021-05-21] MEDS ORDERED: ERGOCALCIFEROL 50000UNITS CAPSULE PO SCH (17:00)
[2021-05-21 20:00] VITALS: BP 141/60
[2021-05-22] MEDS: BLOOD SUGAR DIAGNOSTIC STRIP TEST SCH ×4 (06:30→20:23)
[2021-05-22] MEDS: FUROSEMIDE 40MG TABLET PO SCH ×2 (06:30→17:46)
[2021-05-22] MEDS: INSULIN LISPRO 100 UNITS/ML SUBCUT SCH ×4 (06:31→21:37)
[2021-05-22 07:11] LABS: BASOPHILS % 0.4 % (0.0-2.0); EOSINOPHILS % 1.8 % (0.0-5.0); HEMATOCRIT. 27.5 % (36.0-48.0); HEMOGLOBIN. 8.6 g/dL (12.0-16.0); LYMPHOCYTES % 19.4 % (20.0-50.0); MEAN CORPUSCULAR HEMOGLOBIN 25.6 pg (28.0-32.0); MEAN CORPUSCULAR VOLUME 82.1 fL (81.0-99.0); MEAN PLATELET VOLUME 9.5 fl (7.4-10.4); MONOCYTES % 11.1 % (2.0-8.0); NEUTROPHILS % 67.3 % (40.0-76.0); PLATELET 221 x1000/uL (130-400); RED BLOOD CELL COUNT 3.35 mill/uL (4.2-5.4); RED CELL DISTRIBUTION WIDTH 14.7 % (11.6-14.6)
[2021-05-22 07:24] LABS: PHOSPHORUS 3.7 mg/dL (2.5-4.9)
[2021-05-22 07:58] VITALS: BP 137/67
[2021-05-22] MEDS: ASPIRIN 81MG EC TABLET PO SCH (08:34)
[2021-05-22] MEDS: FERROUS SULFATE 325MG TABLET PO SCH ×3 (08:34→17:46)
[2021-05-22] MEDS: ASCORBIC ACID 500 MG TABLET PO SCH (08:34)
[2021-05-22] MEDS: MINOXIDIL 2.5MG TABLET PO SCH ×2 (08:35→20:23)
[2021-05-22] MEDS: LABETALOL HCL 100MG TABLET PO SCH ×2 (08:36→20:22)
[2021-05-22] MEDS: ISOSORBIDE MONONITRATE 60MG TABLET SR 24HR PO SCH (08:36)
[2021-05-22] MEDS: AMLODIPINE 5MG TABLET PO SCH ×2 (08:37→20:22)
[2021-05-22] MEDS: INSULIN GLARGINE UD 100 UNITS/ML SYR SUBCUT SCH ×2 (10:34→21:36)
[2021-05-22 20:00] VITALS: BP 127/51
[2021-05-23] MEDS: FUROSEMIDE 40MG TABLET PO SCH ×2 (06:25→17:14)
[2021-05-23] MEDS: BLOOD SUGAR DIAGNOSTIC STRIP TEST SCH ×4 (06:25→21:00)
[2021-05-23] MEDS: INSULIN LISPRO 100 UNITS/ML SUBCUT SCH ×4 (06:27→21:00)
[2021-05-23 06:42] LABS: BASOPHILS % 0.4 % (0.0-2.0); EOSINOPHILS % 1.6 % (0.0-5.0); LYMPHOCYTES % 17.6 % (20.0-50.0); MEAN CORPUSCULAR HEMOGLOBIN 25.8 pg (28.0-32.0); MEAN CORPUSCULAR VOLUME 80.5 fL (81.0-99.0); MEAN PLATELET VOLUME 9.3 fl (7.4-10.4); MONOCYTES % 10.7 % (2.0-8.0); NEUTROPHILS % 69.7 % (40.0-76.0); PLATELET 229 x1000/uL (130-400); RED BLOOD CELL COUNT 3.48 mill/uL (4.2-5.4); RED CELL DISTRIBUTION WIDTH 14.5 % (11.6-14.6)
[2021-05-23 06:57] LABS: PHOSPHORUS 3.9 mg/dL (2.5-4.9)
[2021-05-23 08:00] VITALS: BP 113/53
[2021-05-23] MEDS: FERROUS SULFATE 325MG TABLET PO SCH ×3 (09:02→17:14)
[2021-05-23] MEDS: ASCORBIC ACID 500 MG TABLET PO SCH (09:02)
[2021-05-23] MEDS: LABETALOL HCL 100MG TABLET PO SCH ×2 (09:08→22:02)
[2021-05-23] MEDS: ASPIRIN 81MG EC TABLET PO SCH (09:08)
[2021-05-23] MEDS: MINOXIDIL 2.5MG TABLET PO SCH ×2 (09:08→22:03)
[2021-05-23] MEDS: ISOSORBIDE MONONITRATE 60MG TABLET SR 24HR PO SCH (09:09)
[2021-05-23] MEDS: AMLODIPINE 5MG TABLET PO SCH ×2 (09:09→22:03)
[2021-05-23] MEDS: INSULIN GLARGINE UD 100 UNITS/ML SYR SUBCUT SCH ×2 (10:42→22:17)
[2021-05-23 20:00] VITALS: BP 144/53
[2021-05-24] MEDS: FUROSEMIDE 40MG TABLET PO SCH ×2 (05:43→18:16)
[2021-05-24] MEDS: BLOOD SUGAR DIAGNOSTIC STRIP TEST SCH ×4 (05:43→21:05)
[2021-05-24 06:34] LABS: BASOPHILS % 0.4 % (0.0-2.0); EOSINOPHILS % 1.6 % (0.0-5.0); HEMATOCRIT. 27.7 % (36.0-48.0); HEMOGLOBIN. 8.9 g/dL (12.0-16.0); LYMPHOCYTES % 16.6 % (20.0-50.0); MEAN CORPUSCULAR VOLUME 80.7 fL (81.0-99.0); MEAN PLATELET VOLUME 9.1 fl (7.4-10.4); MONOCYTES % 10.9 % (2.0-8.0); NEUTROPHILS % 70.5 % (40.0-76.0); PLATELET 216 x1000/uL (130-400); RED BLOOD CELL COUNT 3.43 mill/uL (4.2-5.4); RED CELL DISTRIBUTION WIDTH 14.6 % (11.6-14.6)
[2021-05-24 08:29] LABS: PHOSPHORUS 3.9 mg/dL (2.5-4.9)
[2021-05-24 08:35] VITALS: BP 112/61
[2021-05-24] MEDS: INSULIN LISPRO 100 UNITS/ML SUBCUT SCH ×4 (09:00→21:13)
[2021-05-24] MEDS: ISOSORBIDE MONONITRATE 60MG TABLET SR 24HR PO SCH (10:25)
[2021-05-24] MEDS: FERROUS SULFATE 325MG TABLET PO SCH ×3 (10:27→18:16)
[2021-05-24] MEDS: ASPIRIN 81MG EC TABLET PO SCH (10:27)
[2021-05-24] MEDS: ASCORBIC ACID 500 MG TABLET PO SCH (10:28)
[2021-05-24] MEDS: LABETALOL HCL 100MG TABLET PO SCH ×2 (10:30→20:29)
[2021-05-24] MEDS: AMLODIPINE 5MG TABLET PO SCH ×2 (10:31→20:30)
[2021-05-24] MEDS: MINOXIDIL 2.5MG TABLET PO SCH ×2 (10:31→20:30)
[2021-05-24] MEDS: INSULIN GLARGINE UD 100 UNITS/ML SYR SUBCUT SCH ×2 (10:35→21:13)
[2021-05-24 20:00] VITALS: BP 169/70
[2021-05-24 21:46] VITALS: BP 141/64
[2021-05-25] MEDS: FUROSEMIDE 40MG TABLET PO SCH ×2 (06:24→18:47)
[2021-05-25] MEDS: BLOOD SUGAR DIAGNOSTIC STRIP TEST SCH ×4 (06:29→21:00)
[2021-05-25 06:32] LABS: BASOPHILS % 0.2 % (0.0-2.0); EOSINOPHILS % 1.9 % (0.0-5.0); HEMATOCRIT. 27.5 % (36.0-48.0); HEMOGLOBIN. 8.8 g/dL (12.0-16.0); LYMPHOCYTES % 16.7 % (20.0-50.0); MEAN CORPUSCULAR VOLUME 81.8 fL (81.0-99.0); MEAN PLATELET VOLUME 9.6 fl (7.4-10.4); MONOCYTES % 10.5 % (2.0-8.0); NEUTROPHILS % 70.7 % (40.0-76.0); PLATELET 211 x1000/uL (130-400); RED BLOOD CELL COUNT 3.37 mill/uL (4.2-5.4); RED CELL DISTRIBUTION WIDTH 14.6 % (11.6-14.6)
[2021-05-25] MEDS: INSULIN LISPRO 100 UNITS/ML SUBCUT SCH ×4 (06:35→22:08)
[2021-05-25 07:23] LABS: PHOSPHORUS 4.2 mg/dL (2.5-4.9)
[2021-05-25 08:20] VITALS: BP 138/59
[2021-05-25] MEDS ORDERED: DOCU-138 MT (09:26)
[2021-05-25] MEDS ORDERED: LABE100T5 MT (09:26)
[2021-05-25] MEDS ORDERED: FURO40TA5 PO (09:26)
[2021-05-25] MEDS ORDERED: FERR325T23 PO (09:26)
[2021-05-25] MEDS ORDERED: AMLO5TAB88 PO (09:26)
[2021-05-25] MEDS ORDERED: LANTUSUD SUBCUT (09:26)
[2021-05-25] MEDS ORDERED: MINO2.5T19 PO (09:26)
[2021-05-25] MEDS: ASPIRIN 81MG EC TABLET PO SCH (11:10)
[2021-05-25] MEDS: FERROUS SULFATE 325MG TABLET PO SCH ×3 (11:11→18:47)
[2021-05-25] MEDS: LABETALOL HCL 100MG TABLET PO SCH ×2 (11:11→21:42)
[2021-05-25] MEDS: AMLODIPINE 5MG TABLET PO SCH ×2 (11:12→21:41)
[2021-05-25] MEDS: MINOXIDIL 2.5MG TABLET PO SCH ×2 (11:12→21:42)
[2021-05-25] MEDS: ASCORBIC ACID 500 MG TABLET PO SCH (11:12)
[2021-05-25] MEDS: ISOSORBIDE MONONITRATE 60MG TABLET SR 24HR PO SCH (11:12)
[2021-05-25] MEDS: INSULIN GLARGINE UD 100 UNITS/ML SYR SUBCUT SCH ×2 (11:19→22:07)
[2021-05-25 20:00] VITALS: BP 164/81
[2021-05-25 23:00] VITALS: BP 136/55
[2021-05-26] MEDS: FUROSEMIDE 40MG TABLET PO SCH (06:06)
[2021-05-26] MEDS: BLOOD SUGAR DIAGNOSTIC STRIP TEST SCH ×2 (06:15→11:58)
[2021-05-26] MEDS: INSULIN LISPRO 100 UNITS/ML SUBCUT SCH ×2 (06:28→13:00)
[2021-05-26 08:19] VITALS: BP 167/70
[2021-05-26] MEDS: ASCORBIC ACID 500 MG TABLET PO SCH (08:23)
[2021-05-26] MEDS: FERROUS SULFATE 325MG TABLET PO SCH ×2 (08:23→13:57)
[2021-05-26] MEDS: MINOXIDIL 2.5MG TABLET PO SCH (08:24)
[2021-05-26] MEDS: ISOSORBIDE MONONITRATE 60MG TABLET SR 24HR PO SCH (08:24)
[2021-05-26] MEDS: LABETALOL HCL 100MG TABLET PO SCH (08:24)
[2021-05-26] MEDS: ASPIRIN 81MG EC TABLET PO SCH (08:24)
[2021-05-26] MEDS: AMLODIPINE 5MG TABLET PO SCH (08:25)
[2021-05-26 09:50] LABS: BASOPHILS % 0.5 % (0.0-2.0); EOSINOPHILS % 1.6 % (0.0-5.0); HEMATOCRIT. 29.4 % (36.0-48.0); HEMOGLOBIN. 9.3 g/dL (12.0-16.0); LYMPHOCYTES % 17.6 % (20.0-50.0); MEAN CORPUSCULAR HEMOGLOBIN 25.6 pg (28.0-32.0); MEAN CORPUSCULAR VOLUME 80.7 fL (81.0-99.0); MEAN PLATELET VOLUME 9.3 fl (7.4-10.4); MONOCYTES % 10.2 % (2.0-8.0); NEUTROPHILS % 70.1 % (40.0-76.0); PLATELET 229 x1000/uL (130-400); RED BLOOD CELL COUNT 3.65 mill/uL (4.2-5.4); RED CELL DISTRIBUTION WIDTH 14.8 % (11.6-14.6)
[2021-05-26 09:51] LABS: PHOSPHORUS 3.1 mg/dL (2.5-4.9)
[2021-05-26] MEDS: INSULIN GLARGINE UD 100 UNITS/ML SYR SUBCUT SCH (10:38)
[2021-05-26 13:07] VITALS: BP 135/53
== END 2021-05-26 18:00 | disposition home health service (06) | DRG 947 ==
PROVIDERS: ADMIT Physical Medicine & Rehabilitation Spinal Cord Injury Medicine; ATTEND Internal Medicine
DX: R53.81 Other malaise (principal); I50.33 Acute on chronic diastolic (congestive) heart failure; J96.01 Acute respiratory failure with hypoxia; I13.0 Hypertensive heart and chronic kidney disease with heart failure and stage 1 through stage 4 chronic kidney disease, or unspecified chronic kidney disease; N17.9 Acute kidney failure, unspecified; E44.1 Mild protein-calorie malnutrition; Z68.41 Body mass index [BMI] 40.0-44.9, adult; N18.4 Chronic kidney disease, stage 4 (severe); E87.0 Hyperosmolality and hypernatremia; M48.02 Spinal stenosis, cervical region; M48.061 Spinal stenosis, lumbar region without neurogenic claudication; T50.2X5A Adverse effect of carbonic-anhydrase inhibitors, benzothiadiazides and other diuretics, initial encounter; E11.22 Type 2 diabetes mellitus with diabetic chronic kidney disease; E11.40 Type 2 diabetes mellitus with diabetic neuropathy, unspecified; E11.65 Type 2 diabetes mellitus with hyperglycemia; E66.01 Morbid (severe) obesity due to excess calories; E78.00 Pure hypercholesterolemia, unspecified; E78.5 Hyperlipidemia, unspecified; E87.8 Other disorders of electrolyte and fluid balance, not elsewhere classified; G89.29 Other chronic pain; I16.0 Hypertensive urgency; D50.9 Iron deficiency anemia, unspecified; E55.9 Vitamin D deficiency, unspecified; F32.9 Major depressive disorder, single episode, unspecified; F41.9 Anxiety disorder, unspecified; R26.9 Unspecified abnormalities of gait and mobility; E53.8 Deficiency of other specified B group vitamins; Z82.49 Family history of ischemic heart disease and other diseases of the circulatory system; Y92.89 Other specified places as the place of occurrence of the external cause; Z71.3 Dietary counseling and surveillance
CPT/HCPCS: 36415; 71045; 80048; 80053; 82306; 82607; 82728; 82746; 82962; 83540; 83550; 83735; 84100; 84134; 84443; 85025; 93970; 94618; 97110; 97116; 97162; 97166; 97530; 97535; J1815; J3420